=== PATIENT | female | born 1975 | race Caucasian/White ===

== ENCOUNTER 2017-02-06 09:22 | Day surgery (SDC) | payer MEDICARE, MEDICAID ==
[~2017-02-06] VITALS: Ht 157.5 cm
[~2017-02-06 09:22] MED LIST: CALCIUM600 MG PO; CARAFATE DPS1 GM PO; CARISOPRODOL350 MG PO; CATAPRES-DPS0.2 MG PO; CLONAZEPAM1 MG PO; DAILY MULTIPLE1 EAC1 PO; DIVALPROEX SOD500 M1 PO; HYDROCODON-ACE1 EAC2 PO; LIPITOR DPS20 MG PO; PANTOPRAZOLE SO40 MG PO; PERCOCET 10-321 EACH PO; SYNTHROID175 MCG PO; VITAMIN B-12250 MCG PO; VITAMIN B-1250 MG PO; VITAMIN D50000 UNIT PO; ZOLOFT DPS100 MG PO
--- NOTE | 2017-02-08 08:03 | OR ---
ADMIT: 02/06/2017 RM/LOC: [facility] MR#: [id number] [address] [place] [id number] Operative/Delivery Room Report SEX: F AGE: 41 : 1975 SURGERY DATE: 02/06/2017 SURGEON: Yaakov Mosquera MD DAYTIME BABYSITTER: None. PREPROCEDURE DIAGNOSES: 1. Cervical disk degeneration. 2. Cervical neuritis. POSTPROCEDURE DIAGNOSES: 1. Cervical disk degeneration. 2. Cervical neuritis. PROCEDURE PERFORMED: Cervical epidural steroid injection, C7-T1 level. INDICATIONS FOR PROCEDURE: The patient is a pleasant female with a history of chronic neck pain with radicular symptoms comes here for a planned cervical epidural steroid injection. ANESTHESIA: Local without sedation. ESTIMATED BLOOD LOSS: Zero. COMPLICATIONS: None immediately evident. DESCRIPTION OF PROCEDURE: After the patient was seen in the preoperative area, vitals signs were taken. Prior to the procedure, the risks, benefits, and alternative therapies were discussed at length. Patient consent was obtained and updated. The patient was taken to the fluoroscopy suite and placed on the fluoroscopy table in the prone position. Pressure points were padded to comfort, monitors applied, and a timeout performed. Once adequate anesthesia of the skin over the cervical spine was achieved, the spine was prepped with ChloraPrep and draped in a sterile fashion. Under ADMIT: 02/06/2017 RM/LOC: [facility] MR#: [id number] [address] [address] [place] [id number] Operative/Delivery Room Report SEX: F AGE: 41 : 1975 fluoroscopic guidance, a 20-gauge 3.5-inch Tuohy needle was passed through the anesthetized skin to the C2 epidural space using a continuous loss of resistance to saline technique. The needle placement in the epidural space was confirmed by loss of resistance to saline and then injection of 2 mL of Isovue 300, which showed a clear epidural pattern with spread of contrast as high as C2. At this time, 4 mL of solution containing 80 mg of methylprednisolone and preservative-free normal saline were injected. The patient tolerated the procedure well and was discharged to postanesthesia recovery where she continued to recover without difficulty. PLAN: Discharge instructions were given, followup scheduled. 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 Yaakov Mosquera MD/ parth JOB #: [id number] CC: Yaakov Mosquera, Attending Physician Marcio Thompson, Family Physician
== END 2017-02-06 10:40 | disposition home or self-care (01) ==
LOC: SSS 09:22
PROC: 3E0S3BZ Introduction of Anesthetic Agent into Epidural Space, Percutaneous Approach (ICD-10-PCS; principal; 2017-02-06)
PROC: 3E0S33Z Introduction of Anti-inflammatory into Epidural Space, Percutaneous Approach (ICD-10-PCS; principal; 2017-02-06)
PROC: B01BYZZ Fluoroscopy of Spinal Cord using Other Contrast (ICD-10-PCS; principal; 2017-02-06)
DX: G89.29 Other chronic pain (principal); M50.13 Cervical disc disorder with radiculopathy, cervicothoracic region; M47.22 Other spondylosis with radiculopathy, cervical region; G43.909 Migraine, unspecified, not intractable, without status migrainosus; F41.9 Anxiety disorder, unspecified; F32.9 Major depressive disorder, single episode, unspecified; I10 Essential (primary) hypertension; I27.2 Other secondary pulmonary hypertension; G47.33 Obstructive sleep apnea (adult) (pediatric); K75.81 Nonalcoholic steatohepatitis (NASH); Z79.891 Long term (current) use of opiate analgesic; Z79.899 Other long term (current) drug therapy; Z87.09 Personal history of other diseases of the respiratory system; Z90.49 Acquired absence of other specified parts of digestive tract; Z88.8 Allergy status to other drugs, medicaments and biological substances; Z88.1 Allergy status to other antibiotic agents; Z90.710 Acquired absence of both cervix and uterus; Z98.890 Other specified postprocedural states

== ENCOUNTER 2017-02-27 07:54 | Day surgery (SDC) | payer MEDICARE, MEDICAID | END 2017-02-27 10:25 | disposition home or self-care (01) | DX: G89.29 Other chronic pain (principal); M47.22 Other spondylosis with radiculopathy, cervical region; M48.02 Spinal stenosis, cervical region; M19.90 Unspecified osteoarthritis, unspecified site; M79.1 Myalgia; F41.9 Anxiety disorder, unspecified; I10 Essential (primary) hypertension; G47.33 Obstructive sleep apnea (adult) (pediatric); F32.9 Major depressive disorder, single episode, unspecified; J45.909 Unspecified asthma, uncomplicated; K75.81 Nonalcoholic steatohepatitis (NASH); Z88.8 Allergy status to other drugs, medicaments and biological substances; Z90.49 Acquired absence of other specified parts of digestive tract; Z79.899 Other long term (current) drug therapy; Z90.710 Acquired absence of both cervix and uterus; Z98.890 Other specified postprocedural states ==